=== PATIENT | male | born 1960 | race Caucasian/White ===

== ENCOUNTER 2022-06-23 15:48 | Emergency (ER) | payer OTHER ==
[~2022-06-23] VITALS: Ht 177.8 cm; Wt 72.6 kg
[2022-06-23 16:02] VITALS: BP 146/89
[2022-06-23 16:28] LABS: BASOPHILS % (AUTO) 0.6 % (0.0-2.0); EOSINOPHILS % (AUTO) 0.5 % (0.0-4.0); HEMATOCRIT 42.4 % (36-52); HEMOGLOBIN 14.7 g/dL (12.0-18.0); LYMPHOCYTES # (AUTO) 1.1 K/uL (2.0-11.5); LYMPHOCYTES % (AUTO) 20.3 % (20.5-51.1); MEAN CORPUSCULAR HEMOGLOBIN 30 pg (27-31); MEAN CORPUSCULAR HGB CONC 35 g/dL (33-37); MEAN CORPUSCULAR VOLUME 87.8 fL (80-94); MONOCYTES # (AUTO) 0.4 K/uL (0.8-1.0); MONOCYTES % (AUTO) 6.7 % (1.7-9.3); NEUTROPHILS # (AUTO) 3.8 K/uL (1.8-7.7); NEUTROPHILS % (AUTO) 71.9 % (42.2-75.2); PLATELET COUNT (AUTO) 225 K/uL (140-450); RED BLOOD CELL COUNT(AUTO) 4.83 MIL/uL (4.20-6.10); RED CELL DISTRIBUTION WIDTH 13.7 % (11.6-13.7); WHITE BLOOD COUNT (AUTO) 5.4 K/uL (4.8-10.8)
[2022-06-23 17:00] LABS: ALBUMIN 4.5 g/dL (3.4-5.0); ANION GAP 12.3 (8-16); ASPARTATE AMINOTRANSFERASE 65 U/L (15-37); CARBON DIOXIDE 29.3 mmol/L (21-32); CHLORIDE 99 mmol/L (98-107); CREATININE 1.1 mg/dL (0.6-1.3); GFR ARICAN-AMERICAN 87 mL/min (>90); GLUCOSE 96 mg/dL (74-106); POTASSIUM 3.6 mmol/L (3.5-5.1); SODIUM SERUM 137 mmol/L (136-145); TOTAL BILIRUBIN 0.5 mg/dL (0.0-1.0); UREA NITROGEN, BLOOD 14 mg/dL (7-18)
--- NOTE | 2022-06-23 17:00 | NUR ---
PT RECEIVED, CARE ASSUMED. PT A/OX4. ALL EXTREMITIES EQUAL AND INTACT. +CSM. NO NUERO DEFICITS. VITALS SIGNS WNL. WILL CONTINUE TO MONITOR
[2022-06-23 17:39] LABS: APPEARANCE,URINE CLEAR (CLEAR); BILIRUBIN,URINE NEGATIVE (NEGATIVE); BLOOD, URINE NEGATIVE (NEGATIVE); COLOR,URINE YELLOW (YELLOW); LEUKOCYTE ESTERASE ,URINE NEGATIVE (NEGATIVE); NITRITE, URINE NEGATIVE (NEGATIVE); UGLUCOSE NEGATIVE (NEGATIVE)
--- NOTE | 2022-06-23 19:28 | NUR ---
ASSUMED CARE OF PT AT THIS TIME. PT IN POSITION OF COMFORT. AWAITING RESULTS AND POSSIBLE DISCHARGE. PT DENIES ANY PAIN OR NEEDS AT THIS TIME. VSS. PT A&OX4, RR EVEN AND UNLABORED.
[2022-06-23 19:30] VITALS: BP 124/62
--- NOTE | 2022-06-23 21:20 | NUR ---
Patient does not wish to proceed with medical care recommended by DR. TONY. Patient given information related to possible complications, up to and including , which could occur as a result of leaving hospital at this time. Patient verbalizes understanding of risks involved leaving against medical advice. Patient has signed AMA form.
== END 2022-06-23 21:20 | disposition left against medical advice (07) ==
LOC: MED 15:48
DX: R20.2 Paresthesia of skin (principal); R42 Dizziness and giddiness; I10 Essential (primary) hypertension; Z85.46 Personal history of malignant neoplasm of prostate
CPT/HCPCS: 36415; 70450; 70496; 70498; 71045; 80053; 81003; 84484; 85025; 86886; 86900; 86901; 93005; 99291; 99292; Q0092; Q9967